=== PATIENT | female | born 1985 | race Two or more races ===

== ENCOUNTER 2017-07-19 06:58 | Inpatient (IN) | payer OTHER ==
[2017-07-19] MEDS ORDERED: Misoprostol 200 MCG Tab PO PRN (07:37)
[2017-07-19] MEDS ORDERED: Lidocaine 1% 50 ML MDV INJECT PRN (07:37)
[2017-07-19] MEDS ORDERED: Methylergonovine 0.2 MG/1 ML Amp IM PRN (07:37)
[2017-07-19] MEDS ORDERED: Tranexamic Acid 1,000 MG in Sodium Chloride 0.9% 100 ML IV PRN (07:37)
[2017-07-19] MEDS ORDERED: Carboprost Tromethamine 250 MCG/1 ML Amp IM PRN (07:37)
[2017-07-19] MEDS ORDERED: Sodium Chloride 0.9% 2.5 ML Syringe FLUSH PRN (07:37)
[2017-07-19] MEDS ORDERED: Misoprostol 25 MCG (1/4 of 100 MCG) Tab VAG PRN (07:37)
[2017-07-19] MEDS ORDERED: Nalbuphine 10 MG/1 ML Vial IVPUSH PRN (07:37)
[2017-07-19] MEDS ORDERED: Sodium Chloride 0.9% 10 ML Syringe FLUSH PRN (07:37)
[2017-07-19] MEDS ORDERED: Terbutaline 1 MG/ML SDV SUBCUT PRN (07:37)
[2017-07-19] MEDS ORDERED: Water For Irrigation,Sterile 1,000 ML Container IRR PRN (07:37)
[2017-07-19] MEDS ORDERED: Oxytocin/0.9 % Sodium Chloride 30 UNIT/500 ML BAG IV SCH ×2 (07:45)
[2017-07-19] MEDS: Misoprostol 25 MCG (1/4 of 100 MCG) Tab PO PRN ×2 (08:36→12:40)
[2017-07-19] MEDS: Misoprostol 25 MCG (1/4 of 100 MCG) Tab VAG PRN ×2 (08:36→12:40)
--- NOTE | 2017-07-19 09:17 | PCM.LDHP ---
L&D History of Present Illness - General Date of Service: 07/19/17 Admit Problem/Dx: Patient Status Order with Admit Dx/Problem 07/19/17 07:37 Patient Status [ADT] Routine Admission Diagnosis/Problem Admission Diagnosis/Problem -related examination 07/19/17 09:12 32yo EDC 07/22/2017 39 4/7wks. OB noted for GDMA2 (oral glyburide) and GBS pos. A+, R nonImm, GBS pos. IOL for GDMA2 Source of Information: Patient History Limitations: Reports: No Limitations - History of Present Illness Improves with: Reports: None Worsens with: Reports: None Associated Symptoms: Reports: N - Related Data Allergies/Adverse Reactions: Allergies Allergy/AdvReac Type Severity Reaction Status Date / Time No Known Allergies Allergy Verified 04/23/15 09:21 Home Medications: Home Meds Acetaminophen/oxyCODONE [Percocet 325-5 MG] 1 tab PO Q4H PRN #1 tablet 06/03/15 [Rx] Past Medical History - Past Health History Medical/Surgical History: Denies Medical/Surgical History HEENT History: Cardiovascular History: - Past Surgical History Head Surgeries/Procedures: Reports: None Social & Family History - Tobacco Use Smoking Status *Q: Never Smoker - Recreational Drug Use Recreational Drug Use: No Drug Use in Last 12 Months: No H&P Review of Systems - Review of Systems: Review Of Systems: See Below General: Reports: No Symptoms HEENT: Reports: No Symptoms Pulmonary: Reports: No Symptoms Cardiovascular: Reports: No Symptoms Gastrointestinal: Reports: No Symptoms Genitourinary: Reports: No Symptoms Musculoskeletal: Reports: No Symptoms Skin: Reports: No Symptoms Psychiatric: Reports: No Symptoms Neurological: Reports: No Symptoms Hematologic/Lymphatic: Reports: No Symptoms Immunologic: Reports: No Symptoms L&D Exam - Exam Exam: See Below - Vital Signs Weight: 75.75 kg - OB Specific Movement: Active Heart Tones: Present Heart Rate (FHR) Variability: Moderate (6-25 bmp) Presentation: Vertex - Anderson Score Anderson Score Cervix Position: Midposition Anderson Score Consistency: Soft Anderson Score Effacement: 51-70% Anderson Score Dilation: 1-2 cm Anderson Score 's Station: -2 Anderson Score Total: 7 - Exam General: Alert, Oriented, Cooperative HEENT: Hearing Intact Lungs: Clear to Auscultation, Normal Respiratory Effort Cardiovascular: Regular Rate, Regular Rhythm, Normal S1, Normal S2 GI/Abdominal Exam: Soft, Non-Tender (gravid) Rectal Exam: Deferred Genitourinary: Cervical dilitation Back Exam: Full Range of Motion Extremities: Normal Range of Motion, Non-Tender, No Pedal Edema, Normal Capillary Refill Skin: Warm, Dry, Intact Neurological: Reflexes Equal Bilateral, Normal Speech, Normal Tone Psychiatric: Alert, Normal Affect, Normal Mood - Patient Data Lab Results Last 24 hrs: Laboratory Results - last 24 hr 07/19/17 07/19/17 Range/Units 07:57 07:57 WBC 6.22 (4.0-11.0) K/uL RBC 4.65 (4.30-5.90) M/uL Hgb 13.5 (12.0-16.0) g/dL Hct 40.1 (36.0-46.0) % MCV 86.2 (80.0-98.0) fL MCH 29.0 (27.0-32.0) pg MCHC 33.7 (31.0-37.0) g/dL RDW Std Deviation 48.7 (28.0-62.0) fl RDW Coeff of Amy 16 H (11.0-15.0) % Plt Count 228 (150-400) K/uL MPV 11.70 (7.40-12.00) fL Nucleated RBC % 0.0 /100WBC Nucleated RBCs # 0 K/uL Blood Type A POSITIVE Antibody Screen NEGATIVE Result Diagrams: 07/19/17 07:57 - Problem List (1) Supervision of normal IUP (intrauterine ) in primigravida SNOMED Code(s): 87141594, 625755409, 916213665 ICD Code: Z34.00 - ENCNTR FOR SUPRVSN OF NORMAL FIRST , UNSP TRIMESTER Status: Acute Priority: High Current Visit: Yes Qualifiers: Trimester: third trimester Qualified Code(s): Z34.03 - Encounter for supervision of normal first , third trimester (2) GDM, class A2 SNOMED Code(s): 42395504 ICD Code: O24.419 - GESTATIONAL DIABETES MELLITUS IN , UNSP CONTROL Status: Acute Priority: High Current Visit: Yes Problem List Initiated/Reviewed/Updated: Yes Orders Last 24hrs: Active Orders 24 hr Category Date Time Status Patient Status [ADT] Routine ADT 07/19/17 07:37 Active Bedrest Bathroom Privileges [RC] ASDIRECTED Care 07/19/17 07:37 Active Communication Order [RC] ASDIRECTED Care 07/19/17 07:37 Active Communication Order [RC] ASDIRECTED Care 07/19/17 07:37 Active Communication Order [RC] ASDIRECTED Care 07/19/17 07:37 Active Heart Tones [RC] CONTINUOUS Care 07/19/17 07:37 Active Non Stress Test [RC] PER UNIT ROUTINE Care 07/19/17 07:37 Active May Shower [RC] ASDIRECTED Care 07/19/17 07:37 Active Notify Provider [RC] PRN Care 07/19/17 07:37 Active Notify Provider [RC] PRN Care 07/19/17 07:37 Active Notify Provider [RC] PRN Care 07/19/17 07:37 Active Notify Provider [RC] STAT Care 07/19/17 07:37 Active Oxygen Therapy [RC] ASDIRECTED Care 07/19/17 07:37 Active Up ad Shayy [RC] ASDIRECTED Care 07/19/17 07:37 Active Vaginal Exam [RC] PRN Care 07/19/17 07:37 Active Vaginal Exam [RC] PRN Care 07/19/17 07:37 Active Vital Signs [RC] PER UNIT ROUTINE Care 07/19/17 07:37 Active Vital Signs [RC] PER UNIT ROUTINE Care 07/19/17 07:37 Active Clear Liquid Diet [DIET] Diet 07/20/17 Breakfast Active Carboprost Tromethamine [Hemabate DS] Med 07/19/17 07:37 Active 250 mcg IM ASDIRECTED PRN Lactated Ringers [Ringers, Lactated] 1,000 ml Med 07/19/17 07:45 Active IV ASDIRECTED Lidocaine 1% [Xylocaine 1%] Med 07/19/17 07:37 Active 50 ml INJECT .ONCE PRN Methylergonovine [Methergine] Med 07/19/17 07:37 Active 0.2 mg IM ASDIRECTED PRN Misoprostol [Cytotec] Med 07/19/17 07:37 Active 200 mcg PO .ONCE PRN Misoprostol [Cytotec] Med 07/19/17 08:05 Active 25 mcg PO Q4H PRN Misoprostol [Cytotec] Med 07/19/17 08:14 Active 25 mcg VAG Q4H PRN Nalbuphine [Nubain] Med 07/19/17 07:37 Active 10 mg IVPUSH ASDIRECTED PRN Oxytocin/0.9 % Sodium Chloride [Oxytocin 30 Unit/500 ML Med 07/19/17 07:45 Active -NS] 30 unit in 500 ml IV TITRATE Oxytocin/0.9 % Sodium Chloride [Oxytocin 30 Unit/500 ML Med 07/19/17 07:45 Active -NS] 30 unit in 500 ml IV TITRATE Sodium Chloride 0.9% [Saline Flush] Med 07/19/17 07:37 Active 10 ml FLUSH ASDIRECTED PRN Sodium Chloride 0.9% [Saline Flush] Med 07/19/17 07:37 Active 2.5 ml FLUSH ASDIRECTED PRN Terbutaline [Brethine] Med 07/19/17 07:37 Active 0.25 mg SUBCUT ASDIRECTED PRN Tranexamic Acid [Cyklokapron] 1,000 mg Med 07/19/17 07:37 Active Sodium Chloride 0.9% [Normal Saline] 100 ml IV ONETIME Water For Irrigation,Sterile [Sterile Water for Med 07/19/17 07:37 Active Irrigation] 1,000 ml IRR ASDIRECTED PRN Scalp Electrode [WOMSER] Per Unit Routine Oth 07/19/17 07:37 Ordered Medication Administration Instruction [OM.PC] Q3H Oth 07/19/17 07:45 Ordered Peripheral IV Insertion Adult [OM.PC] Routine Oth 07/19/17 07:37 Ordered Resuscitation Status Routine Resus Stat 07/19/17 07:37 Ordered Medication Orders Carboprost Tromethamine (Hemabate Ds) 250 mcg IM ASDIRECTED PRN PRN Reason: Post Hemorrhage Lactated Ringer's (Ringers, Lactated) 1,000 mls @ 150 mls/hr IV ASDIRECTED NIR Oxytocin/Sodium Chloride (Oxytocin 30 Unit/500 Ml-Ns) 30 unit in 500 mls @ 999 mls/hr IV TITRATE NIR Oxytocin/Sodium Chloride (Oxytocin 30 Unit/500 Ml-Ns) 30 unit in 500 mls @ 2 mls/hr IV TITRATE NIR; 2 MUNITS/MIN PRN Reason: Protocol Tranexamic Acid 1,000 mg/ (Sodium Chloride) 110 mls @ 600 mls/hr IV ONETIME PRN PRN Reason: Bleeding Lidocaine HCl (Xylocaine 1%) 50 ml INJECT .ONCE PRN PRN Reason: Laceration repair Methylergonovine Maleate (Methergine) 0.2 mg IM ASDIRECTED PRN PRN Reason: Post Hemorrhage Misoprostol (Cytotec) 200 mcg PO .ONCE PRN PRN Reason: Post Hemorrhage Misoprostol (Cytotec) 25 mcg PO Q4H PRN PRN Reason: Cervical Ripening Last Admin: 07/19/17 08:36 Dose: 25 mcg Misoprostol (Cytotec) 25 mcg VAG Q4H PRN PRN Reason: Bleeding Last Admin: 07/19/17 08:36 Dose: 25 mcg Nalbuphine HCl (Nubain) 10 mg IVPUSH ASDIRECTED PRN PRN Reason: Pain (severe 7-10) Sodium Chloride (Saline Flush) 10 ml FLUSH ASDIRECTED PRN PRN Reason: Keep Vein Open Sodium Chloride (Saline Flush) 2.5 ml FLUSH ASDIRECTED PRN PRN Reason: Keep Vein Open Sterile Water (Sterile Water For Irrigation) 1,000 ml IRR ASDIRECTED PRN PRN Reason: delivery Terbutaline Sulfate (Brethine) 0.25 mg SUBCUT ASDIRECTED PRN PRN Reason: Tacysystole Assessment/Plan Comment:: IOL for GDMA2 A: 32yo EDC 07/22/2017 39 4/7wks. OB noted for GDMA2 (oral glyburide) and GBS pos. A+, R nonImm, GBS pos. IOL for GDMA2 P: Admit, cytotec to pitocin induction, AMP for GBS pos. Anticipate . Dr Mendoza updated on pt status.
[2017-07-19] MEDS ORDERED: Ampicillin 2 GM in Sodium Chloride 0.9% 100 ML IV ONE (17:51)
[2017-07-19] MEDS ORDERED: Ampicillin 2 GM AdvVial IV ONE (18:02)
[2017-07-19] MEDS ORDERED: Sodium Chloride 0.9% 0 ML ONE (18:04)
[2017-07-19] MEDS: Lactated Ringers 1,000 ML IV SCH (18:12)
[2017-07-19] MEDS: Ampicillin 1 GM in Sodium Chloride 0.9% 50 ML IV SCH (22:00)
[2017-07-20] MEDS: Ampicillin 1 GM in Sodium Chloride 0.9% 50 ML IV SCH ×3 (02:07→11:00)
--- NOTE | 2017-07-20 02:30 | PCM.PREANE ---
Preanesthetic Assessment - Anesthesia/Transfusion/Family Hx Anesthesia History: Prior Anesthesia Without Reaction Family History of Anesthesia Reaction: No - Review of Systems General: No Symptoms Pulmonary: No Symptoms Cardiovascular: No Symptoms Gastrointestinal: No Symptoms Neurological: No Symptoms Other: Reports: None - Physical Assessment Height: 5 ft 6 in Weight: 75.75 kg ASA Class: 2 Mental Status: Alert & Oriented x3 Airway Class: Mallampati = 2 Dentition: Reports: Normal Dentition Thyro-Mental Finger Breadths: 3 Mouth Opening Finger Breadths: 3 ROM/Head Extension: Full Lungs: Clear to Auscultation, Normal Respiratory Effort Cardiovascular: Regular Rate, Regular Rhythm - Lab Values: Laboratory Last Values WBC 6.22 K/uL (4.0-11.0) 07/19/17 07:57 RBC 4.65 M/uL (4.30-5.90) 07/19/17 07:57 Hgb 13.5 g/dL (12.0-16.0) 07/19/17 07:57 Hct 40.1 % (36.0-46.0) 07/19/17 07:57 MCV 86.2 fL (80.0-98.0) 07/19/17 07:57 MCH 29.0 pg (27.0-32.0) 07/19/17 07:57 MCHC 33.7 g/dL (31.0-37.0) 07/19/17 07:57 RDW Std Deviation 48.7 fl (28.0-62.0) 07/19/17 07:57 RDW Coeff of Amy 16 % (11.0-15.0) H 07/19/17 07:57 Plt Count 228 K/uL (150-400) 07/19/17 07:57 MPV 11.70 fL (7.40-12.00) 07/19/17 07:57 Nucleated RBC % 0.0 /100WBC 07/19/17 07:57 Nucleated RBCs # 0 K/uL 07/19/17 07:57 Blood Type A POSITIVE 07/19/17 07:57 Antibody Screen NEGATIVE 07/19/17 07:57 - Allergies Allergies/Adverse Reactions: Allergies Allergy/AdvReac Type Severity Reaction Status Date / Time No Known Allergies Allergy Verified 04/23/15 09:21 - Acknowledgements Anesthesia Type Planned: Epidural Pt an Appropriate Candidate for the Planned Anesthesia: Yes Alternatives and Risks of Anesthesia Discussed w Pt/Guardian: Yes Pt/Guardian Understands and Agrees with Anesthesia Plan: Yes PreAnesthesia Questionnaire - Past Health History Medical/Surgical History: Denies Medical/Surgical History HEENT History: Reports: None Cardiovascular History: Reports: None Respiratory History: Reports: None Gastrointestinal History: Reports: GERD Genitourinary History: Reports: None Musculoskeletal History: Reports: None Neurological History: Reports: None Psychiatric History: Reports: None Endocrine/Metabolic History: Reports: Diabetes, Gestational (Insulin controlled , 3rd trimester) Hematologic History: Reports: None Immunologic History: Reports: None Oncologic (Cancer) History: Reports: None Dermatologic History: Reports: None - Infectious Disease History Infectious Disease History: Reports: None - Past Surgical History Head Surgeries/Procedures: Reports: None - SUBSTANCE USE Smoking Status *Q: Never Smoker Tobacco Use Within Last Twelve Months: No Recreational Drug Use History: No - HOME MEDS Home Medications: Home Meds Acetaminophen/oxyCODONE [Percocet 325-5 MG] 1 tab PO Q4H PRN #1 tablet 06/03/15 [Rx] - CURRENT (IN HOUSE) MEDS Current Meds: Current Medications Carboprost Tromethamine (Hemabate Ds) 250 mcg IM ASDIRECTED PRN PRN Reason: Post Hemorrhage Lactated Ringer's (Ringers, Lactated) 1,000 mls @ 150 mls/hr IV ASDIRECTED NIR Last Admin: 07/19/17 18:12 Dose: 150 mls/hr Oxytocin/Sodium Chloride (Oxytocin 30 Unit/500 Ml-Ns) 30 unit in 500 mls @ 999 mls/hr IV TITRATE NIR Oxytocin/Sodium Chloride (Oxytocin 30 Unit/500 Ml-Ns) 30 unit in 500 mls @ 2 mls/hr IV TITRATE NIR; 2 MUNITS/MIN PRN Reason: Protocol Last Titration: 07/19/17 23:39 Dose: 14 munits/min, 14 mls/hr Tranexamic Acid 1,000 mg/ (Sodium Chloride) 110 mls @ 600 mls/hr IV ONETIME PRN PRN Reason: Bleeding Ampicillin Sodium 1 gm/ Sodium (Chloride) 50 mls @ 100 mls/hr IV Q4H NIR Last Admin: 07/20/17 02:07 Dose: 100 mls/hr Lidocaine HCl (Xylocaine 1%) 50 ml INJECT .ONCE PRN PRN Reason: Laceration repair Methylergonovine Maleate (Methergine) 0.2 mg IM ASDIRECTED PRN PRN Reason: Post Hemorrhage Misoprostol (Cytotec) 200 mcg PO .ONCE PRN PRN Reason: Post Hemorrhage Misoprostol (Cytotec) 25 mcg PO Q4H PRN PRN Reason: Cervical Ripening Last Admin: 07/19/17 12:40 Dose: 25 mcg Misoprostol (Cytotec) 25 mcg VAG Q4H PRN PRN Reason: Bleeding Last Admin: 07/19/17 12:40 Dose: 25 mcg Nalbuphine HCl (Nubain) 10 mg IVPUSH ASDIRECTED PRN PRN Reason: Pain (severe 7-10) Last Admin: 07/19/17 21:23 Dose: 10 mg Sodium Chloride (Saline Flush) 10 ml FLUSH ASDIRECTED PRN PRN Reason: Keep Vein Open Sodium Chloride (Saline Flush) 2.5 ml FLUSH ASDIRECTED PRN PRN Reason: Keep Vein Open Sterile Water (Sterile Water For Irrigation) 1,000 ml IRR ASDIRECTED PRN PRN Reason: delivery Terbutaline Sulfate (Brethine) 0.25 mg SUBCUT ASDIRECTED PRN PRN Reason: Tacysystole Discontinued Medications Ampicillin Sodium (Ampicillin) Confirm Administered Dose 4 gm IV .STK-MED ONE Stop: 07/19/17 18:03 Ampicillin Sodium 2 gm/ Sodium (Chloride) 100 mls @ 200 mls/hr IV ONETIME ONE Stop: 07/19/17 18:20 Last Admin: 07/19/17 18:12 Dose: 200 mls/hr Sodium Chloride (Normal Saline) Confirm Administered Dose 100 mls @ as directed .ROUTE .STK-MED ONE Stop: 07/19/17 18:05 Misoprostol (Cytotec) 25 mcg VAG Q4H PRN PRN Reason: Cervical Ripening
[2017-07-20] MEDS: Lactated Ringers 1,000 ML IV SCH ×2 (03:01→07:46)
[2017-07-20] MEDS ORDERED: Bupivacaine 0.5% 10 ML SDV ONE ×2 (05:25→10:43)
[2017-07-20] MEDS ORDERED: Acetaminophen 500 MG Tab PO ONE (09:43)
[2017-07-20] MEDS ORDERED: Acetaminophen 500 MG Tab PO PRN ×2 (11:19)
[2017-07-20] MEDS ORDERED: Witch Hazel Medicated Pads 40/Jar TOP PRN (11:19)
[2017-07-20] MEDS ORDERED: Docusate Sodium 100 MG Cap PO PRN (11:19)
[2017-07-20] MEDS ORDERED: Lanolin 100% Cream 7 GM Tube TOP PRN (11:19)
[2017-07-20] MEDS ORDERED: Benzocaine/Menthol 20%-0.5% Spray 78 GM Cannister TOP PRN (11:19)
[2017-07-20] MEDS ORDERED: oxyCODONE 5 MG Tab PO PRN (11:19)
[2017-07-20] MEDS ORDERED: Bisacodyl 10 MG Supp RECTAL PRN (11:19)
[2017-07-20] MEDS ORDERED: Ibuprofen 400 MG Tab PO PRN (11:19)
[2017-07-20] MEDS ORDERED: Ibuprofen 800 MG Tab PO PRN (11:19)
[2017-07-20] MEDS ORDERED: Methylergonovine 0.2 MG/1 ML Amp ONE (11:30)
[2017-07-20] MEDS ORDERED: Oxytocin/0.9 % Sodium Chloride 30 UNIT/500 ML BAG ONE (11:31)
--- NOTE | 2017-07-20 12:46 | OR ---
SURGEON: Edgar Mendoza MD DATE OF PROCEDURE: Ms. Melton is 32, primigravida. She is followed in our clinic primarily by our nurse nuclear auxiliary operator. She is gestational diabetic, she had repeated and reactive NST and her blood sugar essentially was excellent during the process of care and she was followed according to the diabetes protocol in our clinic. The patient is admitted for induction. She responded to the Cytotec and Pitocin and she had epidural anesthesia for labor analgesia. The patient progressed and she was complete, complete and she has commenced pushing. She pushed in excess of 3 hours. I was consulted to evaluate the patient. Upon evaluation, the presentation was vertex OA, +2 station with about more than 1/4 is visible when the patient is pushing. The patient was tired and her contraction was less than adequate and after consulting with the patient, explained to her option, we elected to do a vacuum extraction. Kiwi vacuum extraction was performed without any problem. With 1 pull and the patient pushing, we were able to deliver a female fetus. She cried immediately. score reported to be 8, 9, and weight is not available at this time. Episiotomy was needed to aid with the delivery. The placenta delivered spontaneous, complete, and intact. After the delivering of the placenta, inspection of the vagina shows no labial laceration, no vaginal laceration. There was only small episiotomy, I proceeded to repair the episiotomy with 2-0 Vicryl in the regular manner approximating all the layer appropriately. Once this got accomplished, estimated blood loss was 250 to 300 mL. heart rate was essentially is category 1 through the entire process of labor. There was no complication in this labor and delivery. GORGE / GERALDO /[id number]
--- NOTE | 2017-07-21 01:34 | PCM48HPAN ---
Post Anesthesia Note - EVALUATION WITHIN 48HRS OF ANESTHETIC Vital Signs in Normal Range: Yes Patient Participated in Evaluation: Yes Respiratory Function Stable: Yes Airway Patent: Yes Cardiovascular Function Stable: Yes Hydration Status Stable: Yes Pain Control Satisfactory: Yes Nausea and Vomiting Control Satisfactory: Yes Mental Status Recovered: Yes Resp Rate: 17 Temperature: 101 C
--- NOTE | 2017-07-21 08:35 | PCM.DCSUM1 ---
Discharge Summary - Hospital Course Free Text/Narrative:: Discharge home with . Follow up in 6 weeks for post or sooner if needed. - Discharge Data Discharge Date: 07/21/17 Discharge Disposition: Home, Self-Care 01 Condition: Good - Discharge Diagnosis/Problem(s) (1) Supervision of normal IUP (intrauterine ) in primigravida SNOMED Code(s): 91145307, 089465711, 922347195 ICD Code: Z34.00 - ENCNTR FOR SUPRVSN OF NORMAL FIRST , UNSP TRIMESTER Status: Acute Priority: High Current Visit: Yes Qualifiers: Trimester: third trimester Qualified Code(s): Z34.03 - Encounter for supervision of normal first , third trimester (2) GDM, class A2 SNOMED Code(s): 84045590 ICD Code: O24.419 - GESTATIONAL DIABETES MELLITUS IN , UNSP CONTROL Status: Acute Priority: High Current Visit: Yes - Patient Instructions Diet: Usual Diet as Tolerated Activity: As Tolerated, No Strenuous Activities, Rest and Relax Today Driving: May Drive Today Showering/Bathing: May Shower Notify Provider of: Fever, Increased Pain, Swelling and Redness, Nausea and/or Vomiting Other/Special Instructions: Discharge home with infant. Follow up in 6 weeks for post or sooner if needed. - Discharge Plan Home Medications: Home Meds Acetaminophen/oxyCODONE [Percocet 325-5 MG] 1 tab PO Q4H PRN #1 tablet 06/03/15 [Rx] Referrals: [facility] [Outside] Ibeth Cheung CNM [Mid-] - 08/30/17 1:30 pm - General Info Date of Service: 07/21/17 Admission Dx/Problem (Free Text: Patient Status Order with Admit Dx/Problem 07/19/17 07:37 Patient Status [ADT] Routine Admission Diagnosis/Problem Admission Diagnosis/Problem -related examination 07/19/17 09:12 32yo EDC 07/22/2017 39 4/7wks. OB noted for GDMA2 (oral glyburide) and GBS pos. A+, R nonImm, GBS pos. IOL for GDMA2 Functional Status: Reports: Pain Controlled, Tolerating Diet, Ambulating, Urinating - Review of Systems General: Reports: No Symptoms HEENT: Reports: No Symptoms Pulmonary: Reports: No Symptoms Cardiovascular: Reports: No Symptoms Gastrointestinal: Reports: No Symptoms Genitourinary: Reports: No Symptoms Musculoskeletal: Reports: No Symptoms Skin: Reports: No Symptoms Neurological: Reports: No Symptoms Psychiatric: Reports: No Symptoms - Patient Data Vitals - Most Recent: Last Vital Signs Temp 101 C H 07/21/17 01:33 Pulse 65 07/20/17 20:39 Resp 17 07/21/17 01:33 BP 117/62 07/20/17 20:39 Pulse Ox 97 07/20/17 20:39 Weight - Most Recent: 75.75 kg Med Orders - Current: Current Medications Acetaminophen (Tylenol Extra Strength) 500 mg PO Q4H PRN PRN Reason: Pain Acetaminophen (Tylenol Extra Strength) 1,000 mg PO Q4H PRN PRN Reason: Pain Last Admin: 07/20/17 09:53 Dose: 1,000 mg Benzocaine/Menthol (Dermoplast Pain Relief 20%-0.5% [place]) 78 gm TOP ASDIRECTED PRN PRN Reason: Perineal Comfort Measure Bisacodyl (Dulcolax) 10 mg RECTAL .ONCE PRN PRN Reason: Constipation Docusate Sodium (Colace) 100 mg PO BID PRN PRN Reason: Constipation Emollient Ointment (Lansinoh Hpa) 0 gm TOP ASDIRECTED PRN PRN Reason: Sore Nipples Last Admin: 07/21/17 02:07 Dose: 1 gm Ibuprofen (Motrin) 400 mg PO Q4H PRN PRN Reason: Pain Ibuprofen (Motrin) 800 mg PO Q6H PRN PRN Reason: Pain Last Admin: 07/21/17 01:37 Dose: 800 mg Oxycodone HCl (Oxycodone) 5 mg PO Q2H PRN PRN Reason: Pain Witch Jojo (Tucks) 1 pad TOP ASDIRECTED PRN PRN Reason: comfort care Discontinued Medications Acetaminophen (Tylenol Extra Strength) 1,000 mg PO ONETIME ONE Stop: 07/20/17 09:44 Ampicillin Sodium (Ampicillin) Confirm Administered Dose 4 gm IV .STK-MED ONE Stop: 07/19/17 18:03 Bupivacaine HCl (Sensorcaine-Mpf 0.5%) Confirm Administered Dose 10 ml .ROUTE .STK-MED ONE Stop: 07/20/17 05:26 Bupivacaine HCl (Sensorcaine-Mpf 0.5%) Confirm Administered Dose 10 ml .ROUTE .STK-MED ONE Stop: 07/20/17 10:44 Carboprost Tromethamine (Hemabate Ds) 250 mcg IM ASDIRECTED PRN PRN Reason: Post Hemorrhage Lactated Ringer's (Ringers, Lactated) 1,000 mls @ 150 mls/hr IV ASDIRECTED NIR Last Admin: 07/20/17 07:46 Dose: 125 mls/hr Oxytocin/Sodium Chloride (Oxytocin 30 Unit/500 Ml-Ns) 30 unit in 500 mls @ 999 mls/hr IV TITRATE NIR Oxytocin/Sodium Chloride (Oxytocin 30 Unit/500 Ml-Ns) 30 unit in 500 mls @ 2 mls/hr IV TITRATE NIR; 2 MUNITS/MIN PRN Reason: Protocol Last Titration: 07/19/17 23:39 Dose: 14 munits/min, 14 mls/hr Tranexamic Acid 1,000 mg/ (Sodium Chloride) 110 mls @ 600 mls/hr IV ONETIME PRN PRN Reason: Bleeding Ampicillin Sodium 2 gm/ Sodium (Chloride) 100 mls @ 200 mls/hr IV ONETIME ONE Stop: 07/19/17 18:20 Last Admin: 07/19/17 18:12 Dose: 200 mls/hr Ampicillin Sodium 1 gm/ Sodium (Chloride) 50 mls @ 100 mls/hr IV Q4H NIR Last Admin: 07/20/17 11:00 Dose: 100 mls/hr Sodium Chloride (Normal Saline) Confirm Administered Dose 100 mls @ as directed .ROUTE .STK-MED ONE Stop: 07/19/17 18:05 Fentanyl/Bupivacaine HCl (Uuntyrjm-Dyrus-Ld 2 Mcg/Ml-0.125%) Confirm Administered Dose 100 mls @ as directed EP .STK-MED ONE Stop: 07/20/17 02:33 Oxytocin/Sodium Chloride (Oxytocin 30 Unit/500 Ml-Ns) Confirm Administered Dose 30 unit in 500 mls @ as directed .ROUTE .STK-MED ONE Stop: 07/20/17 11:32 Last Admin: 07/20/17 12:00 Dose: 30 unit Lidocaine HCl (Xylocaine 1%) 50 ml INJECT .ONCE PRN PRN Reason: Laceration repair Methylergonovine Maleate (Methergine) 0.2 mg IM ASDIRECTED PRN PRN Reason: Post Hemorrhage Methylergonovine Maleate (Methergine) Confirm Administered Dose 0.2 mg .ROUTE .STK-MED ONE Stop: 07/20/17 11:31 Last Admin: 07/20/17 11:34 Dose: 0.2 mg Misoprostol (Cytotec) 200 mcg PO .ONCE PRN PRN Reason: Post Hemorrhage Misoprostol (Cytotec) 25 mcg VAG Q4H PRN PRN Reason: Cervical Ripening Misoprostol (Cytotec) 25 mcg PO Q4H PRN PRN Reason: Cervical Ripening Last Admin: 07/19/17 12:40 Dose: 25 mcg Misoprostol (Cytotec) 25 mcg VAG Q4H PRN PRN Reason: Bleeding Last Admin: 07/19/17 12:40 Dose: 25 mcg Nalbuphine HCl (Nubain) 10 mg IVPUSH ASDIRECTED PRN PRN Reason: Pain (severe 7-10) Last Admin: 07/19/17 21:23 Dose: 10 mg Sodium Chloride (Saline Flush) 10 ml FLUSH ASDIRECTED PRN PRN Reason: Keep Vein Open Sodium Chloride (Saline Flush) 2.5 ml FLUSH ASDIRECTED PRN PRN Reason: Keep Vein Open Sterile Water (Sterile Water For Irrigation) 1,000 ml IRR ASDIRECTED PRN PRN Reason: delivery Terbutaline Sulfate (Brethine) 0.25 mg SUBCUT ASDIRECTED PRN PRN Reason: Tacysystole - Exam General: Reports: Alert, Oriented, Cooperative, No Acute Distress Lungs: Reports: Clear to Auscultation, Normal Respiratory Effort Cardiovascular: Reports: Regular Rate, Regular Rhythm, No Murmurs GI/Abdominal Exam: Soft, Non-Tender, No Organomegaly, No Distention, No Mass, Pelvis Stable (Female) Exam: Vaginal Bleeding Rectal (Female) Exam: Deferred Back Exam: Reports: Full Range of Motion Extremities: Normal Inspection, Normal Range of Motion, Non-Tender, No Pedal Edema, Normal Capillary Refill Skin: Reports: Warm, Dry, Intact Wound/Incisions: Reports: Healing Well Neurological: Reports: No New Focal Deficit, Normal Speech, Normal Tone Psy/Mental Status: Reports: Alert, Normal Affect, Normal Mood *Q Meaningful Use (DIS) - VTE *Q VTE Criteria *Q: - Stroke *Q Stroke Criteria *Q: - AMI *Q AMI Criteria *Q:
[2017-07-21 15:10] VITALS: BP 104/48
== END 2017-07-21 16:45 | disposition home or self-care (01) | DRG 775 ==
LOC: MW.OB 06:58 → MW.OBCHECK 06:58 → MW.OB 07:36 → OBSVTOIN 07-20 11:20 → MW.OB 07-20 16:48
PROVIDERS: ADMIT Obstetrics & Gynecology; ATTEND Obstetrics & Gynecology
PROC: 10D07Z6 Extraction of Products of Conception, Vacuum, Via Natural or Artificial Opening (ICD-10-PCS; principal; 2017-07-20)
PROC: 3E0P7VZ Introduction of Hormone into Female Reproductive, Via Natural or Artificial Opening (ICD-10-PCS; 2017-07-20)
PROC: 3E033VJ Introduction of Other Hormone into Peripheral Vein, Percutaneous Approach (ICD-10-PCS; 2017-07-20)
PROC: 0W8NXZZ Division of Female Perineum, External Approach (ICD-10-PCS; 2017-07-20)
PROC: 0HQ9XZZ Repair Perineum Skin, External Approach (ICD-10-PCS; 2017-07-20)
DX: O24.425 Gestational diabetes mellitus in childbirth, controlled by oral hypoglycemic drugs (principal); Z3A.39 39 weeks gestation of pregnancy; Z37.0 Single live birth
CPT/HCPCS: 01967; 36415; 59025; 59409; 85027; 86850; 86900; 86901; A9270-GY; J0290; J2210; J2300; J2590; J7030; J7050; J7120

== ENCOUNTER 2023-10-24 05:35 | Inpatient (IN) | payer BC, OTHER ==
[2023-10-24] MEDS ORDERED: Methylergonovine 0.2 MG/1 ML Amp IM PRN (05:56)
[2023-10-24] MEDS ORDERED: Carboprost Tromethamine 250 MCG/1 mL Vial IM PRN (05:56)
[2023-10-24] MEDS ORDERED: Sodium Chloride 0.9% 10 ML Syringe FLUSH PRN (05:56)
[2023-10-24] MEDS ORDERED: Ondansetron 4 MG/2 ML SDV IVPUSH PRN (05:56)
[2023-10-24] MEDS ORDERED: Sodium Chloride 0.9% 2.5 ML Syringe FLUSH PRN (05:56)
[2023-10-24] MEDS ORDERED: Misoprostol 200 MCG Tab PO PRN (05:56)
[2023-10-24] MEDS ORDERED: Lidocaine 1% 50 ML MDV INJECT PRN (05:56)
[2023-10-24] MEDS ORDERED: Sodium Chloride 0.9% 20 ML SDV IV PRN (05:56)
[2023-10-24] MEDS ORDERED: Tranexamic Acid IN NACL,ISO-OS 1,000 MG in Premix Bag 1 BAG IV PRN (05:56)
[2023-10-24] MEDS ORDERED: Water For Irrigation,Sterile 1,000 ML Container IRR PRN (05:56)
[2023-10-24] MEDS: Lactated Ringers 1,000 ML IV SCH (06:15)
[2023-10-24] MEDS: Ampicillin 2 GM in Sodium Chloride 0.9% 100 ML IV ONE (06:17)
[2023-10-24 06:35] LABS: HEMATOCRIT 39.7 % (37.0-47.0); HEMOGLOBIN 13.7 g/dL (12.0-16.0); MEAN CORPUSCULAR HEMOGLOBIN 30.1 pg (28.0-32.0); MEAN CORPUSCULAR HGB CONC 34.5 g/dL (32.0-36.0); MEAN CORPUSCULAR VOLUME 87.3 fL (83.0-99.0); MEAN PLATELET VOLUME 10.9 fL (9.4-12.3); PLATELET COUNT,PLT 245 K/uL (150-400); RED BLOOD CELL COUNT 4.55 M/uL (4.10-5.30); WHITE BLOOD CELL COUNT,WBC 11.38 K/uL (3.9-11.3)
[2023-10-24] MEDS: Butorphanol 2 MG/ML SDV IVPUSH PRN (07:32)
[2023-10-24] MEDS ORDERED: Ampicillin 1 GM Vial IM SCH (10:00)
[2023-10-24] MEDS ORDERED: Ropivacaine HCl/PF 200 ML ONE (10:21)
[2023-10-24] MEDS ORDERED: Phenylephrine HCl In 0.9% NaCl 1 MG/10 ML Syringe ONE (10:21)
[2023-10-24] MEDS ORDERED: Bupivacaine 0.5% 10 ML SDV ONE (10:21)
[2023-10-24] MEDS: Ampicillin 1 GM in Sodium Chloride 0.9% 50 ML IV SCH (10:30)
[2023-10-24] MEDS ORDERED: Sodium Chloride 0.9% 50 ML ONE (10:33)
[2023-10-24] MEDS: Ropivacaine HCl/PF 400 MG in Premix Bag 1 BAG EPIDUR SCH (10:35)
[2023-10-24] MEDS ORDERED: Phenylephrine HCl In 0.9% NaCl 1 MG/10 ML Syringe IVPUSH PRN (10:46)
[2023-10-24] MEDS ORDERED: ePHEDrine 50 MG/ML SDV IVPUSH PRN ×2 (10:46)
[2023-10-24] MEDS ORDERED: Lanolin 100% Cream 7 GM Tube TOP PRN (18:53)
[2023-10-24] MEDS ORDERED: Docusate Sodium 100 MG Cap PO PRN (18:53)
[2023-10-24] MEDS: Oxytocin/0.9 % Sodium Chloride 30 UNIT/500 ML BAG IV SCH (19:03)
[2023-10-24] MEDS: Acetaminophen 500 MG Tab PO PRN (21:14)
[2023-10-24] MEDS: Benzocaine/Menthol 20%-0.5% Spray 78 GM Cannister TOP PRN (21:15)
[2023-10-24] MEDS: Witch Hazel Medicated Pads 40/Jar TOP PRN (21:15)
[2023-10-24] MEDS: Ibuprofen 800 MG Tab PO PRN (21:15)
[2023-10-25 06:34] LABS: HEMATOCRIT 29.6 % (37.0-47.0); HEMOGLOBIN 10.2 g/dL (12.0-16.0)
[2023-10-27 12:41] VITALS: BP 121/57; PULSE 67
== END 2023-10-27 13:13 | disposition home or self-care (01) | DRG 560 ==
LOC: MW.OBCHECK 05:35 → MW.OB 05:36 → MW.OBCHECK 05:56 → OBSVTOIN 17:01 → MW.OB 22:00
PROVIDERS: ADMIT Obstetrics & Gynecology Obstetrics; ATTEND Obstetrics & Gynecology Obstetrics
PROC: 10E0XZZ Delivery of Products of Conception, External Approach (ICD-10-PCS; principal; 2023-10-24)
PROC: 3E0R3BZ Introduction of Anesthetic Agent into Spinal Canal, Percutaneous Approach (ICD-10-PCS; 2023-10-24)
PROC: 00HU33Z Insertion of Infusion Device into Spinal Canal, Percutaneous Approach (ICD-10-PCS; 2023-10-24)
DX: O42.02 Full-term premature rupture of membranes, onset of labor within 24 hours of rupture (principal); Z37.0 Single live birth; O48.0 Post-term pregnancy; O99.824 Streptococcus B carrier state complicating childbirth; O77.0 Labor and delivery complicated by meconium in amniotic fluid; Z3A.40 40 weeks gestation of pregnancy
CPT/HCPCS: 36415; 51702; 59025; 59409; 84112; 85014; 85018; 85027; 86592; 86850; 86900; 86901; A9270-GY; J0290; J0595; J0665; J2371; J2590; J2795; J3490; J7120